=== PATIENT | female | born 1965 | race Caucasian/White ===

== ENCOUNTER 2018-10-15 08:46 | Emergency (ER) | payer OTHER ==
[2018-10-15 08:59] VITALS: RESP 18; TEMP 98.7
[2018-10-15] MEDS: ONDANSETRON HCL 4 MG/2 ML SOL IV ONE (09:08)
[2018-10-15] MEDS ORDERED: ONDANSETRON HCL 4 MG/2 ML SOL ONE (09:09)
[2018-10-15] MEDS ORDERED: DIPHENHYDRAMINE 50 MG/ML SOL ONE (09:22)
[2018-10-15] MEDS: DIPHENHYDRAMINE 50 MG/ML SOL IV ONE (09:28)
[2018-10-15] MEDS: SODIUM CHLORIDE 0.9% FLUSH 10 ML SOL IV PRN (09:30)
[2018-10-15 09:33] LABS: BASOPHILS % (AUTO) 1 % (0-3); EOSINOPHILS % (AUTO) 4 % (0-9); HEMATOCRIT 40 % (35-47); HEMOGLOBIN 13.3 gm/dl (12.0-15.5); LYMPHOCYTES % (AUTO) 20.9 % (10-50); MEAN CORPUSCULAR HEMOGLOBIN 29.6 pg (27.0-32.0); MEAN CORPUSCULAR HGB CONC 33.4 gm/dl (32.0-36.0); MEAN CORPUSCULAR VOLUME 89 fL (81-99); MONOCYTES % (AUTO) 3.6 % (0-12); NEUTROPHILS % (AUTO) 70.6 % (37-80)
[2018-10-15 09:43] LABS: ALBUMIN 3.5 gm/dl (3.4-5.0); BILIRUBIN,TOTAL 0.8 mg/dl (0.2-1.0); CALCIUM 8.6 mg/dl (8.5-10.1); CARBON DIOXIDE 25.1 mEq/L (21-32); CREATININE 0.92 mg/dl (0.60-1.00); POTASSIUM 3.7 mMol/L (3.5-5.1); TOTAL PROTEIN 6.7 gm/dl (6.4-8.2)
[2018-10-15] MEDS: SODIUM CHLORIDE 0.9% 1000ML 1,000 ML IV ONE (09:47)
[2018-10-15 10:09] VITALS: PULSE 51
[2018-10-15 10:57] VITALS: BP 129/76; O2SAT 97
== END 2018-10-15 10:53 | disposition home or self-care (01) | DRG 149 ==
LOC: ED 08:46
DX: R42 Dizziness and giddiness (principal); R73.9 Hyperglycemia, unspecified; R11.2 Nausea with vomiting, unspecified
CPT/HCPCS: 36415; 70450; 80053; 85025; 96365; 96374; 96375; 99283; 99285; J1200; J2405